=== PATIENT | male | born 1945 | race Caucasian/White ===

== ENCOUNTER 2017-08-25 05:33 | Inpatient (IN) | payer OTHER, BC ==
[~2017-08-25] VITALS: Ht 180.3 cm; Wt 107.8 kg
[~2017-08-25 05:33] MED LIST: ASPIR-LOW81 MG PO; ASPIRIN325 MG PO; CADUET 10/801 TABLET PO; ENBREL50 MG/1 ML SC; ENDOCET 5-3251 EACH PO; FOLIC ACID1 MG PO; IBUPROFEN800 MG PO; LOSARTAN POTAS100 MG PO; METHOTREXATE2.5 MG PO; METOPROLOL SUCC50 MG PO; PREDNISONE5 MG PO; TAMSULOSIN HCL0.4 MG PO; TIZANIDINE HCL4 M1 PO; VITAMIN D250000 UNIT PO; ZETIA10 MG PO
[2017-08-25 06:14] LABS: HEMATOCRIT 32.7 % (38.0-50.0); HEMOGLOBIN 11.5 G/DL (12.5-16.6); MCH 36.4 PG (29.0-34.0); MCHC 35.2 G/DL (30.0-36.0); MCV 103.5 FL (86-99); PLATELET COUNT 190 K/uL (156-360); RBC DIS.WIDTH-CV 14.7 % (11.8-14.6); RBC DIS.WIDTH-SD 55.2 % (39-53); RED BLOOD COUNT 3.16 M/uL (4.00-5.50); WHITE BLOOD COUNT 16.3 K/uL (4.1-10.2)
[2017-08-25 06:26] LABS: CHLORIDE 103 mEq/L (99-109); POTASSIUM 3.4 mEq/L (3.7-5.4); SODIUM 136 mEq/L (136-147)
[2017-08-25 06:28] LABS: GLUCOSE 131 mg/dL (70-99)
[2017-08-25 06:32] LABS: CREATININE 1.3 mg/dL (0.6-1.3); GFR ESTIMATE (CALCULATED) 58 mL/min/ (58.99-99999); UREA NITROGEN (BUN) 15 mg/dL (9-23)
[2017-08-25 06:41] LABS: TROP-I INTERPRETATION NEGATIVE; TROPONIN-I 0.09 ng/mL (0.0-0.30)
[2017-08-25 07:27] LABS: APPEARANCE CLOUDY ((CLEAR)); BILIRUBIN NEGATIVE; BLOOD LARGE; COLOR AMBER ((YELLOW)); GLUCOSE (STRIP) NEGATIVE; KETONES 20; LEUKOCYTES MODERATE; NITRITE POSITIVE; PROTEIN (STRIP) >=500; SPECIFIC GRAVITY 1.026 (1.000-1.030); UROBILINOGEN 0.2 MG/DL (0.2-1.0)
[2017-08-25 07:39] LABS: CK-MB 35.8 ng/mL (0.0-4.9)
[2017-08-25 07:41] LABS: WHITE BLOOD CELLS TNTC /HPF (0-5)
[2017-08-25 07:42] LABS: BACTERIA 3+ /HPF; EPITHELIAL CELLS 1+ /HPF; MUCUS NONE SEEN /LPF; UCUL ADDED? YES
[2017-08-25 08:34] LABS: CKMB RELATIVE INDEX 0.9 (0.0-3.9); CREATINE KINASE > 4053 IU/L (1-294); TOTAL CK > 4053 IU/L (1-294)
[2017-08-25] MEDS ORDERED: VITAMIN D31000 UNIT PO (10:23)
[2017-08-25] MEDS ORDERED: SENNA PLUS TAB1 EACH PO (10:24)
[2017-08-25] MEDS ORDERED: LIDOCAINE700 MG TP (10:28)
[2017-08-25] MEDS ORDERED: ENDOCET 5-3251 EACH PO (10:28)
[2017-08-25 11:31] VITALS: BP 180/84
[2017-08-25 14:50] LABS: TROP-I INTERPRETATION NEGATIVE; TROPONIN-I 0.07 ng/mL (0.0-0.30)
[2017-08-25 15:48] VITALS: BP 170/79
[2017-08-25 20:10] VITALS: BP 147/68
[2017-08-25 23:55] VITALS: BP 141/66
[2017-08-26 04:07] VITALS: BP 137/68
[2017-08-26 06:16] LABS: HEMATOCRIT 31.9 % (38.0-50.0); HEMOGLOBIN 10.9 G/DL (12.5-16.6); MCH 35.3 PG (29.0-34.0); MCHC 34.2 G/DL (30.0-36.0); MCV 103.2 FL (86-99); PLATELET COUNT 190 K/uL (156-360); RBC DIS.WIDTH-CV 15.1 % (11.8-14.6); RBC DIS.WIDTH-SD 55.8 % (39-53); RED BLOOD COUNT 3.09 M/uL (4.00-5.50); WHITE BLOOD COUNT 13.4 K/uL (4.1-10.2)
[2017-08-26 06:52] LABS: CHLORIDE 111 MEQ/L (99-109); GFR ESTIMATE (CALCULATED) > 59 mL/min/ (58.99-99999); GLUCOSE 108 mg/dL (70-99); POTASSIUM 3.5 MEQ/L (3.7-5.4); SODIUM 142 MEQ/L (136-147); UREA NITROGEN (BUN) 14 mg/dL (9-23)
[2017-08-26 06:57] LABS: CREATINE KINASE 5880 IU/L (1-294)
[2017-08-26 08:20] VITALS: BP 142/80
[2017-08-26 12:13] VITALS: BP 146/72
[2017-08-26 15:30] VITALS: BP 144/70
[2017-08-26 19:28] VITALS: BP 166/77
[2017-08-26 22:25] LABS: CHLORIDE 109 MEQ/L (99-109); GFR ESTIMATE (CALCULATED) > 59 mL/min/ (58.99-99999); GLUCOSE 135 mg/dL (70-99); POTASSIUM 3.7 MEQ/L (3.7-5.4); SODIUM 137 MEQ/L (136-147); UREA NITROGEN (BUN) 19 mg/dL (9-23)
[2017-08-26 22:26] LABS: CREATINE KINASE 6092 IU/L (1-294)
[2017-08-27 00:12] VITALS: BP 153/81
[2017-08-27 04:23] VITALS: BP 155/76
[2017-08-27 07:00] VITALS: BP 150/74
[2017-08-27 07:34] LABS: ALBUMIN 2.9 G/DL (3.2-4.8); ALKALINE PHOSPHATASE 58 IU/L (3-129); ALT (GPT) 93 IU/L (3-49); AST (GOT) 254 IU/L (2-34); CHLORIDE 110 MEQ/L (99-109); GFR ESTIMATE (CALCULATED) > 59 mL/min/ (58.99-99999); GLUCOSE 165 mg/dL (70-99); POTASSIUM 3.4 MEQ/L (3.7-5.4); SODIUM 141 MEQ/L (136-147); TOTAL BILIRUBIN 0.3 MG/DL (0.0-1.0); TOTAL PROTEIN 5.3 G/DL (6.4-8.3); UREA NITROGEN (BUN) 14 mg/dL (9-23)
[2017-08-27 07:44] LABS: CREATINE KINASE 5553 IU/L (1-294)
[2017-08-27 11:00] VITALS: BP 138/73
[2017-08-27 15:10] VITALS: BP 142/78
[2017-08-27 21:00] VITALS: BP 153/76
[2017-08-28 00:40] VITALS: BP 160/77
[2017-08-28 04:05] VITALS: BP 163/76
[2017-08-28 07:25] LABS: HEMATOCRIT 33.2 % (38.0-50.0); HEMOGLOBIN 11.2 G/DL (12.5-16.6); MCH 34.6 PG (29.0-34.0); MCHC 33.7 G/DL (30.0-36.0); MCV 102.5 FL (86-99); PLATELET COUNT 207 K/uL (156-360); RBC DIS.WIDTH-CV 15.1 % (11.8-14.6); RBC DIS.WIDTH-SD 56.1 % (39-53); RED BLOOD COUNT 3.24 M/uL (4.00-5.50); WHITE BLOOD COUNT 4.9 K/uL (4.1-10.2)
[2017-08-28 08:26] LABS: ALKALINE PHOSPHATASE 58 IU/L (3-129); ALT (GPT) 98 IU/L (3-49); AST (GOT) 206 IU/L (2-34); CHLORIDE 104 MEQ/L (99-109); CREATINE KINASE 3496 IU/L (1-294); CREATININE 0.8 MG/DL (0.6-1.3); GFR ESTIMATE (CALCULATED) > 59 mL/min/ (58.99-99999); GLUCOSE 125 mg/dL (70-99); POTASSIUM 3.4 MEQ/L (3.7-5.4); SODIUM 143 MEQ/L (136-147); TOTAL BILIRUBIN 0.3 MG/DL (0.0-1.0); TOTAL PROTEIN 5.4 G/DL (6.4-8.3); UREA NITROGEN (BUN) 10 mg/dL (9-23)
[2017-08-28 08:31] VITALS: BP 155/75
[2017-08-28 08:44] LABS: FOLIC ACID (FOLATE) 11.4 NG/ML (5.0-22.0)
[2017-08-28] MEDS ORDERED: OMNICEF300 MG PO (14:20)
== END 2017-08-28 17:42 | disposition home or self-care (01) | DRG 558 ==
LOC: EME → EDBD 05:33 → EME 05:33 → EDOF 09:30 → 5EAST 09:30 → ENRESERV 09:39 → EDOF 09:39 → ENRESERV 10:03 → 5EAST 10:57
PROVIDERS: Emergency Medicine; Internal Medicine
DX: M62.82 Rhabdomyolysis (principal); N39.0 Urinary tract infection, site not specified; E87.6 Hypokalemia; M06.9 Rheumatoid arthritis, unspecified; I10 Essential (primary) hypertension; R39.15 Urgency of urination; R31.9 Hematuria, unspecified; I25.10 Atherosclerotic heart disease of native coronary artery without angina pectoris; M54.9 Dorsalgia, unspecified; E11.51 Type 2 diabetes mellitus with diabetic peripheral angiopathy without gangrene; R29.6 Repeated falls; E78.5 Hyperlipidemia, unspecified; K59.00 Constipation, unspecified; G89.29 Other chronic pain; R53.1 Weakness; I73.9 Peripheral vascular disease, unspecified; D53.9 Nutritional anemia, unspecified; B96.20 Unspecified Escherichia coli [E. coli] as the cause of diseases classified elsewhere; K21.9 Gastro-esophageal reflux disease without esophagitis; F17.210 Nicotine dependence, cigarettes, uncomplicated; Z88.2 Allergy status to sulfonamides; Z91.09 Other allergy status, other than to drugs and biological substances; Z79.82 Long term (current) use of aspirin; Z79.52 Long term (current) use of systemic steroids; Z86.79 Personal history of other diseases of the circulatory system; Z95.5 Presence of coronary angioplasty implant and graft; Z98.890 Other specified postprocedural states
CPT/HCPCS: 71045; 80048; 80048 91; 80053; 81003; 82550; 82550 91; 82553; 82607; 82746; 83605; 84484; 85027; 87077; 87086; 87186; 93005; 93306; 99281; 99284; J0696; J7030; J7070; J7512

== ENCOUNTER 2017-09-25 05:36 | Day surgery (SDC) | payer OTHER, BC ==
[~2017-09-25] VITALS: Ht 180.3 cm; Wt 103.4 kg
[~2017-09-25 05:36] MED LIST changes: +LIDOCAINE700 MG TP; +MIRALAX119 GM PO; +OMNICEF300 MG PO; +SENNA PLUS TAB1 EACH PO; +VITAMIN D31000 UNIT PO
[2017-09-25 07:20] VITALS: BP 155/74
[2017-09-25 11:00] VITALS: BP 153/72
[2017-09-25 11:47] VITALS: BP 146/75
== END 2017-09-25 12:05 | disposition home or self-care (01) ==
LOC: SDC 05:36
DX: M51.16 Intervertebral disc disorders with radiculopathy, lumbar region (principal); G89.29 Other chronic pain; I10 Essential (primary) hypertension; I25.2 Old myocardial infarction; N40.0 Benign prostatic hyperplasia without lower urinary tract symptoms; I45.10 Unspecified right bundle-branch block; Z87.891 Personal history of nicotine dependence; Z95.5 Presence of coronary angioplasty implant and graft
CPT/HCPCS: 72020; 76000; J0131; J0690; J1100; J2250; J2405; J2710; J3010; J7643